=== PATIENT | male | born 1955 | race Caucasian/White ===

== ENCOUNTER 2017-05-14 18:38 | Emergency (ER) | payer OTHER ==
[~2017-05-14] VITALS: Ht 167.6 cm; Wt 83.0 kg
[2017-05-14 20:38] VITALS: BP 151/69
== END 2017-05-14 20:38 | disposition home or self-care (01) ==
LOC: ED 18:38
DX: R51 Headache (principal); R20.0 Anesthesia of skin; I10 Essential (primary) hypertension; G43.909 Migraine, unspecified, not intractable, without status migrainosus
CPT/HCPCS: J0780; J1200; J7030